=== PATIENT | female | born 1985 | race Caucasian/White ===

== ENCOUNTER → 2024-02-27 13:29 | Outpatient (BNVA) | payer MEDICARE, SELFPAY | PROVIDERS: PCP Physician Assistant; Visit Provider Physician Assistant Surgical ==

== ENCOUNTER 2024-03-11 07:58 | Outpatient (AMB) | payer MEDICARE, MEDICAID, SELFPAY ==
--- NOTE | 2024-03-11 13:13 | MHC.OFFVISWM ---
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 HPI Comments Details: Previous weight loss efforts: Lap band 2018, pre lap band: 325lbs, lowest: 290lbs Wakes up: 6am, Sleeps: 11pm Breakfast: skips Lunch 12-1pm (Tacos or salad) Dinner: 5pm (turkey, ham and chicken) Snacks: 7pm (chips or fruits) Exercise: none, walks horses Fluids: Coffee: 1 cup/day, tea: occasionally, soda: rarely, juice: rarely, ETOH: none PFSH Medical History (Updated 03/11/24 @ 13:17 by Gilmar Doherty MD) ADHD Anxiety Depression Morbid obesity Surgical History (Updated 03/11/24 @ 13:17 by Gilmar Doherty MD) History of laparoscopic adjustable gastric banding Hx of tubal ligation Family History (Updated 02/27/24 @ 14:04 by Shira Salinas CMA) Mother Skin cancer Father Liver cancer Heart attack Daughter Asthma ADHD Son No problems noted. Son No problems noted. Social History (Updated 02/27/24 @ 14:04 by Shira Salinas CMA) Alcohol intake: current Alcohol intake frequency: holidays/special occasions only Patient Tobacco Use Status: Never used Tobacco Telehealth Telehealth Telehealth Platform: Telephone Location of provider rendering services: practice address Location of patient: address on file Patient Identification confirmed using: Name, : Yes Telehealth method: voice only Patient verbally consented to treatment: Yes Patient verbally consented to billing insurance company: Yes Patient informed of any privacy concerns related to visit: Yes Minutes spent on Phone/Video with Pt.: 45 Assessment & Plan Assessment & Plan (1) Morbid obesity: Code(s): E66.01 - Morbid (severe) obesity due to excess calories Category: Medical Plan: 1.? Plan for lap band removal followed by sleeve gastrectomy a few months later. If diaphragmatic or ventral hernias are present at time of surgery, these will be repaired laparoscopically as well. Risks and complications include possible conversion to an open procedure, anastomotic leak, bleeding requiring transfusion, small bowel obstruction, , DVT and pulmonary embolism, cardiac, or pulmonary complications, as residential complications such as anastomotic ulcer, insufficient weight loss and vitamin deficiencies. I emphasized the importance of close follow-up, adherence to instructions and good communication. 2. Nutritional counseling. Start with 2 CELEBRATE REBUILD protein (buy at [facility]'s [employer] shop) shakes (TWO scoops EACH in 8oz low fat unsweetened almond milk each) at 7am-9am and 10am-12pm, 2 protein bars (CELEBRATE protein bars, buy at [facility] [employer] shop) at 1pm-3pm and 4pm-6pm, dinner at 7pm (8 forks of protein and 8 forks of salad/vegetables) AND one more protein bar after dinner at 9pm-11pm. So you do 2 protein shakes, 3 protein bars and one meal per day. Meal to include lean meat (beef, fish, pork, turkey, chicken), or brit[place] virgin islander yogurt, or egg whites, or beans with a salad with olive oil and fruits (berries, pears, apples, kiwi). Avoid salt, breads, potatoes, rice, pasta, desserts. 3. Each shake would be drunk slowly, like coffee in a period of 2 hours. 4. Cut each bar in 4 pieces and eat each piece in 30min ?to make each bar last 2 hours. 5. I emphasized the importance of measuring accurately the food portion and measure it when serving the food in plate 6. The meal portions include 8 full-size forks of meat and 8 full-size forks of salad. You always eat the meat portion but you can replace up to 4 forks for salad/vegetables with rice, potatoes or pasta, or a fruit ?if you like. The less you do it the better weight loss will be. 7. One full-size fork is what it can be scooped on the fork without falling aside and not what can be bit with the fork. Use regular forks like those you find in a typical restaurant. 8.? Please send me weight measurements as soon as possible and then once a week. Always include your diet and exercise plan. 9. Start walking outside daily, tracking calories with a goal of 300 calories per day, daily. Goal is to burn 2000 calories per week on exercise, which means either 300 calories daily, or 400 calories 5 days per week, or 500 calories 4 days per week, or 650 calories 3 days per week. 10. The best choice would be to purchase a stationary bike, elliptical or treadmill at home that can track calories. Let me know if you do so I can give you an exercise plan. 11.?It is important of avoiding and for at least 18 months postoperatively and has been discussed at the infosession. 12. Goal is to lose at least 1.5-2lbs per week 13. Goal to lose 10% of your weight before surgery, which is about 31lbs. Ultimate weight goal: 284lbs before surgery 14. Please follow the diet plan exactly without any change. If you don't like something about the plan or you feel hungry you need to communicate with me so I can help you revise the plan. You should not change the plan yourself. 15. To be scheduled for EGD due to history of GERD. The possibility of biopsies was discussed. Patient needs to avoid use of NSAIDs and aspirin for 1 week prior to EGD. Risks of perforation and bleeding was discussed with the patient. This will be an outpatient procedure with IV sedation.
[2024-03-11 13:21] VITALS: BMI 47.9
== END 2024-03-11 16:01 | disposition home or self-care (01) ==
LOC: HO.HBS 07:58
PROVIDERS: PCP Physician Assistant; Visit Provider Surgery
DX: E66.813 Obesity, class 3 (principal); Z68.42 Body mass index [BMI] 45.0-49.9, adult
CPT/HCPCS: 99443

== ENCOUNTER 2024-04-03 07:55 | Day surgery (SDC) | payer MEDICARE, MEDICAID, SELFPAY ==
--- NOTE | 2024-04-02 08:34 | HO.ANESPROP2 ---
Documented by User: Krystle Irby NP 04/02/24 08:34 HPI - Anesthesia Eval Consult details Narrative: 38yo F for Upper Endoscopy PMFSH Active Problems Active Problems: All Active Problems ADHD (Acute) Anxiety (Acute) Depression (Acute) Morbid obesity (Acute) Past Medical History Medical History ADHD Anxiety Depression Morbid obesity Family History Family History Mother Skin cancer Father Liver cancer Heart attack Daughter Asthma ADHD Son No problems noted. Son No problems noted. Surgical History Surgical History History of laparoscopic adjustable gastric banding Hx of tubal ligation Social History Social History Alcohol intake: current Alcohol intake frequency: holidays/special occasions only Patient Tobacco Use Status: Never used Tobacco Use of substances other than those prescribed or required for medical reasons: No Are you DNR?: No Advance Directives: No Advance Directives Information Provided: Yes Nutrition Risks: No Nutritional Risk Patient : No Meds Allergies Allergy/AdvReac Type Severity Reaction Status Date / Time acetaminophen [From Vicodin] Allergy Mild hives Verified 03/11/24 13:13 hydrocodone [From Vicodin] Allergy Mild hives Verified 02/27/24 15:27 Home Medications ?Medication ?Instructions ?Recorded ?Confirmed ?Last Taken ?Type dextroamphetamine-amphetamine 30 30 mg PO DAILY 02/27/24 04/03/24 Unknown History mg tablet (Adderall) duloxetine 20 mg capsule,delayed 20 mg PO DAILY 04/03/24 04/03/24 Unknown History release (Cymbalta) Assessment and Plan Assessment Anesthesia Assessment: Chart Reviewed Documented by User: Dona Walker MD 04/03/24 09:36 PMFSH Active Problems Active Problems: All Active Problems ADHD (Acute) Anxiety (Acute) Depression (Acute) Morbid obesity (Acute) BMI 47.8 Denies ANUPAMA Past Medical History Medical History ADHD Anxiety Depression Morbid obesity Family History Family History Mother Skin cancer Father Liver cancer Heart attack Daughter Asthma ADHD Son No problems noted. Son No problems noted. Family history of problems with anesthesia: No Surgical History Surgical History History of laparoscopic adjustable gastric banding Hx of tubal ligation History of Problems with Anesthesia: No Social History Social History Alcohol intake: current Alcohol intake frequency: holidays/special occasions only Patient Tobacco Use Status: Never used Tobacco Use of substances other than those prescribed or required for medical reasons: No Are you DNR?: No Advance Directives: No Advance Directives Information Provided: Yes Nutrition Risks: No Nutritional Risk Patient : No Meds Allergies Allergy/AdvReac Type Severity Reaction Status Date / Time acetaminophen [From Vicodin] Allergy Mild hives Verified 03/11/24 13:13 hydrocodone [From Vicodin] Allergy Mild hives Verified 02/27/24 15:27 Home Medications ?Medication ?Instructions ?Recorded ?Confirmed ?Last Taken ?Type dextroamphetamine-amphetamine 30 30 mg PO DAILY 02/27/24 04/03/24 Unknown History mg tablet (Adderall) duloxetine 20 mg capsule,delayed 20 mg PO DAILY 04/03/24 04/03/24 Unknown History release (Cymbalta) Exam Height,Weight and Vital Signs: Height 5 ft 8 in Weight 142.598 kg Vital Signs Temp Pulse Resp BP Pulse Ox O2 Del Method 04/03/24 09:01 97.8 F 74 16 124/61 98 Room Air Airway Mallampati Class: III TM Dist: >3cm Neck ROM: Full Loose/Missing/Broken Teeth: No Heart: RRR Lungs: CTAB Assessment and Plan Assessment Anesthesia Assessment: Anesthesia Plan Discussed and Chart Reviewed Final Anesthetic Review Family History of Problems with Anesthesia: No History of Problems with Anesthesia: No NPO: Yes ASA Class: III Final Preanesthetic Review: No Changes in Pt Med Stat, Meds/Allgs Chart Reviewed, Consent Obtained/Reviewed and Anes Risks/Benef Reviewed Patient Risk: Intermediate Procedure Risk: Low Assessment/Block/Sedation in SS: Assess/Block/Sedation-SS Anesthetic Plan Anesthetic Plan: TIVA Disposition: Standard PACU
[2024-04-03 08:59] VITALS: BMI 47.8
[2024-04-03 09:01] VITALS: BP 124/61; PULSE 74; RESP 16; TEMP 36.6; O2SAT 98
[2024-04-03] MEDS: Lactated Ringers 1,000 ML 80 ML IVCONT (09:16)
--- NOTE | 2024-04-03 09:27 | MHC.SHP ---
Pre-Procedural Eval Section A - 24 Hr Update-Section A only Date of Service: 04/03/24 The patient is an INPATIENT: No Section B - Complete if H&P > 30 days Chief Complaint: Bariatric surgery status Relevant Family History (Specify if Yes): No Relevant Social History: None Present Medications: None Medical History: No relevant PMH History of Previous Operations: Relevant previous surgery/procedure and date(s) (Lap band) Allergies: Allergies Allergy/AdvReac Type Severity Reaction Status Date / Time acetaminophen [From Vicodin] Allergy Mild hives Verified 03/11/24 13:13 hydrocodone [From Vicodin] Allergy Mild hives Verified 02/27/24 15:27 Review of Systems Sugical H&P ROS: Negative: Constitution, Cardiovascular, Respiratory, Neurological, Psychiatric, Hem-Onc, Allergic/Immunologic, Gastrointestinal, Genitourinary, Musculoskeletal, Integumentary, Endocrine and Eyes/Ears/Nose/Throat Exam Surgical H&P Exam: Significant Findings: Abdomen (port at RUQ) Plan Diagnosis/Plan: Unchanged (EGD to assess the stomach's anatomy and whether there is any slippage or band erosion. Risks of bleeding and perforation were discussed with the patient and she is in agreement with the plan.) I have reviewed the history and physical and performed a pertinent physical examination on my patient. No changes have occurred unless specified. Time Spent With Patient Time: Total time managing care of this patient today ____ minutes.
--- NOTE | 2024-04-03 09:31 | P.BOP_ITS ---
Brief Operative Note Date of Service: 04/03/24 Pre-op diagnosis: Lap band status Post-op diagnosis: same Procedure: PREOPERATIVE DIAGNOSIS: Morbid obesity s/p lap band POSTOPERATIVE DIAGNOSIS: ?Same as above. Normal endoscopy PROCEDURE: Dwgqxeum-oykhsw-mdkzedbygstl with biopsies Surgeon: ?Garrett Doherty M.D.. Ph.D. Wool Washer Feeder: None ? Anesthesia: IV sedation Estimated blood loss: ?Minimal FINDINGS AND PROCEDURE: ? OPERATIVE INDICATIONS: ?The patient is a 38 year old female known to me who underwent a laparoscopic gastric band by Dr. Soriano. The patient had poor weight loss so far and is interested in a revision. Based on this information I recommended an upper endoscopy to evaluate the stomach's anatomy and whether there is any band slippage or erosion. Risks and complications of the surgery were discussed with the patient in advance particularly the possibility of perforation or bleeding that may require surgical intervention. The patient understood the risks and was in agreement with the plan. ? PROCEDURE: After informed consent was obtained by the patient, the patient was ?transferred to the Operating Room and was placed in the supine position.? After successful induction of IV sedation, a mouth block was inserted and the patient was placed in the left lateral decubitus position. An upper endoscopy was performed next, the oropharynx and esophagus appeared within the normal limits. There was no hiatal hernia. The z-line was smooth.? The stomach was entered and it appeared to be of normal size. There was no band erosion, ?slippage, gastritis and no ulcer. The scope was advanced into the duodenum which appeared to be normal as well. Retroflexion was performed and again no band erosion was seen. At that point the duodenum and the stomach were decompressed and the scope was withdrawn from the patient's mouth.Biopsies were obtained from the antrum (x1), fundus (x1), GE junction (x2) and distal esophagus (x2). No significant bleeding was noted from any of the biopsy sites. The patient was awaken and was transferred in stable condition to the Recovery Room for further care. I was present and performed all steps of the procedure. There were no residents to assist with this case. Garrett Doherty M.D., Ph.D. Surgeon: Gilmar Doherty MD Anesthesia: MAC Was an Wool Washer Feeder used for this Procedure?: No Estimated blood loss (mL): 0 IV fluids (mL): 400 Urine output (mL): 0 (No albert to record output) Pathology: none sent (1) antrum x1, 2) fundus x1, 3) GE junction x2, 4) distal esophagus x2) Condition: stable Disposition: PACU
[2024-04-03 09:59] VITALS: BP 110/68; PULSE 76; RESP 14; TEMP 36.5; O2SAT 97
[2024-04-03 10:14] VITALS: BP 121/74; PULSE 86; RESP 18; TEMP 36.5; O2SAT 94
== END 2024-04-03 10:30 | disposition home or self-care (01) ==
PROVIDERS: PCP Family Medicine; Visit Provider Surgery
PROC: 0DJ08ZZ Inspection of Upper Intestinal Tract, Via Natural or Artificial Opening Endoscopic (ICD-10-PCS; CPT 43235; principal; 2024-04-03 09:30)
DX: E66.01 Morbid (severe) obesity due to excess calories (principal); Z68.42 Body mass index [BMI] 45.0-49.9, adult; Z98.84 Bariatric surgery status; K20.90 Esophagitis, unspecified without bleeding; F90.9 Attention-deficit hyperactivity disorder, unspecified type; F32.A Depression, unspecified; F41.9 Anxiety disorder, unspecified; Z79.899 Other long term (current) drug therapy; Z88.5 Allergy status to narcotic agent; Z98.51 Tubal ligation status
CPT/HCPCS: 43239; 88305; 88313; 88342; J1596; J2003; J2250; J2704

== ENCOUNTER → 2024-04-03 07:55 | Outpatient (BNV) | payer MEDICARE, MEDICAID, SELFPAY | PROVIDERS: PCP Family Medicine; Visit Provider Surgery | DX: E66.01 Morbid (severe) obesity due to excess calories (principal); E66.813 Obesity, class 3; Z68.41 Body mass index [BMI] 40.0-44.9, adult; Z98.84 Bariatric surgery status | CPT/HCPCS: 43239 ==

== ENCOUNTER 2024-05-20 09:54 | Outpatient (AMB) | payer MEDICARE, MEDICAID, SELFPAY ==
--- NOTE | 2024-05-20 09:36 | A.OFFVIS_ITS ---
Intake Visit Reasons: (OV) Pre Op Lap Band Removal 05/30/24 Allergies acetaminophen [From Vicodin] Allergy (Mild, Verified 05/20/24 09:36) hives hydrocodone [From Vicodin] Allergy (Mild, Verified 05/20/24 09:36) hives Medication List - Last Reconciled 05/20/24 by Gilmar Doherty MD dextroamphetamine-amphetamine 30 mg (Adderall) 30 mg PO DAILY duloxetine (Cymbalta) 20 mg PO DAILY ondansetron 4 mg PO Q12H pantoprazole 40 mg PO DAILY HPI HPI (OV) Pre Op Lap Band Removal 05/30/24: Details: Start time: 9.25am, End time: 9.50am ?I spent 20 minutes speaking with the patient on the phone plus an additional 5 minutes reviewing and updating records for a total of 25 minutes HPI Comments Details: Has lost 7.7lbs or 2.44% TBWL This is her preop to remove the gastric band and accessories PFSH Medical History ADHD Anxiety Depression Morbid obesity Surgical History (Updated 05/20/24 @ 09:41 by Gilmar Doherty MD) History of laparoscopic adjustable gastric banding Hx of tubal ligation Family History Mother Skin cancer Father Liver cancer Heart attack Daughter Asthma ADHD Son No problems noted. Son No problems noted. Social History Alcohol intake: current Alcohol intake frequency: holidays/special occasions only Patient Tobacco Use Status: Never used Tobacco Telehealth Telehealth Telehealth Platform: Telephone Location of provider rendering services: practice address Location of patient: address on file Patient Identification confirmed using: Name, : Yes Telehealth method: voice only Patient verbally consented to treatment: Yes Patient verbally consented to billing insurance company: Yes Patient informed of any privacy concerns related to visit: Yes Minutes spent on Phone/Video with Pt.: 25 Assessment & Plan Assessment & Plan (1) History of laparoscopic adjustable gastric banding: Code(s): Z98.84 - Bariatric surgery status Category: Surgical Plan: 1. Plan for lap band removal and accessories including upper GI endoscopy. All tests has been completed and reviewed and the patient is cleared for the surgery. Risks and complications were discussed in detail including possible conversion to an open procedure, leak, bleeding requiring transfusion, small bowel obstruction, , DVT and pulmonary embolism, cardiac, or pulmonary complications, as senior care complications such as weight gain. I emphasized the importance of close follow-up, adherence to instructions and good communication. So far she has proven to be an excellent communicator and very compliant with all our directions accomplishing a weight loss. 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 2. Preop prescriptions were provided and explained the purpose of each one. Need to be purchased preop. Start Pantoprazole now as you get it from the pharmacy, 1 pill per day. The Zofran is for after surgery as needed. 4. Needs to purchase 1oz medicine cups . 4. Needs to purchase Children's liquid Tylenol for postop pain control. 5. Avoid aspirin, motrin, Advil, Aleve, Meloxicam, Excedrin, Ibuprofen, Naproxyn. Tylenol is OK. 6. Will do basic preop blood work-up any day between Monday05/21/24 and Monday05/24/24 fasting for 12 hours and is scheduled to see the Anesthesiologist prior to the day of surgery. 7. Importance of adherence to postop folllow-up and recommendations was underscored and she understands that. 8. Continue to avoid food and bars and continue with 5 Celebrate REBUILD protein shakes (TWO scoops EACH in 8oz almond milk) at 7am-9am, 10am-12pm, 1pm-3pm, 4pm- 6pm and at 7pm-9pm 9. No soups, broths or V8 10. The patient's?medical?history has been reviewed and they are considered low risk for post op DVT and therefore DVT prophylaxis is not considered necessary. Travel after surgery was reviewed. The patient has not disclosed any travel plans during the first 30 days after surgery and they have been advised that within the first 30 days after surgery any bus, plane, train or car travel over 2 hours in duration is contraindicated due to the possibility of developing blood clots from immobility. Any travel, needs to include periods of ambulation of 10 minutes in duration every 2 hours.? Patient was instructed to discuss any plans for travel during this period with their bariatric surgeon.? 11. Take no medications the day of your surgery 12. Stop any control pills and don't use them for one month after surgery 13. Absolutely no smoking or vaping, or marijuana until the surgery and for at least the first 4 weeks. Only nicotine patches are allowed. 14. Send me weight measurements on Monday05/25/24 and then on 05/30/24, the day of surgery before you go to the hospital. 15. Avoid any steroids by mouth for any reason. Let me know if someone prescribes them to you Orders: Orders Comprehensive Met. Panel Today Z01.818 - Encounter for other preprocedural examination Complete Blood Count Auto Diff Today Z01.818 - Encounter for other preprocedural examination Hemoglobin A1c Today Z01.818 - Encounter for other preprocedural examination Type and Screen Today Z01.818 - Encounter for other preprocedural examination Partial Thromboplastin Time Today Z01.818 - Encounter for other preprocedural examination Prothrombin Time INR Today Z01.818 - Encounter for other preprocedural examination Medications: New pantoprazole 40 mg PO DAILY 30 tabs 0RF K21.9 - Gastro-esophageal reflux disease without esophagitis ondansetron Only take one every 12 hours as needed if you have nausea 4 mg PO Q12H 20 tabs 0RF nausea and vomiting R11.0 - Nausea
== END 2024-05-20 10:21 | disposition home or self-care (01) ==
LOC: HO.HBS 09:54
PROVIDERS: PCP Family Medicine; Visit Provider Surgery
DX: Z98.84 Bariatric surgery status (principal)
CPT/HCPCS: 98016

== ENCOUNTER 2024-05-20 09:54 | Outpatient (REF) | payer MEDICARE, MEDICAID, SELFPAY | END 2024-05-20 09:55 | disposition home or self-care (01) | LOC: HO.LAB 09:54 | PROVIDERS: PCP Family Medicine; Visit Provider Surgery | DX: Z01.818 Encounter for other preprocedural examination (principal); K21.9 Gastro-esophageal reflux disease without esophagitis; R11.0 Nausea; Z13.89 Encounter for screening for other disorder ==

== ENCOUNTER 2024-05-27 10:23 | Outpatient (REF) | payer MEDICARE, MEDICAID, SELFPAY ==
--- NOTE | 2024-05-27 11:00 | ECG_ITS ---
Test Reason : PRE OP Blood Pressure : */* mmHG Vent. Rate : 69 BPM Atrial Rate : 69 BPM P-R Int : 122 ms QRS Dur : 90 ms QT Int : 408 ms P-R-T Axes : 66 20 30 degrees QTcB Int : 437 ms Normal sinus rhythm Normal ECG No previous ECGs available Referred By: Gilmar Doherty Electronically Signed By: ANDRIY RICHARD
--- OUTSIDE RECORDS SUMMARY | 2024-05-27 15:06 | XMS_ITS | Encounter Summary ---
Author Organization [facility] Address [address] [place] [address] Care Team Providers Care General Cargo Clerk Name Role Phone Matteo Osullivan MD Primary Care Provider Ny Castellanos Primary Care Provider Piedad vailable Encounter Details Date Type Department Care Team Description 04/21/2017 [facility] Medical Records [address] [place] [address] Josafat Villaseñor MD [address] [place] [address] [address] [place] [address] Social History Tobacco Use Types Packs/Day Years Used Date Smoking Tobacco: Never Smokeless Tobacco: Never Alcohol Use Standard Drinks/Week Comments Yes 0 (1 standard drink = 0.6 oz pur e alcohol) social Sex Assigned at Date Recorded Not on file documented as of this encounter Plan of Treatment Not on file documented as of this encounter Visit Diagnoses Not on filedocumented in this encounter Care Teams General Cargo Clerk Relationship Specialty Start Date End Date Matteo Osullivan MD PCP - General 05/01/08 10/22/17 Ny Little PCP - General Family Practice 10/23/17 documented as of this encounter
--- OUTSIDE RECORDS SUMMARY | 2024-05-27 15:06 | XMS_ITS | Clinical Summary ---
Author Organization [facility] Address [phone] [address] [place] [address] Care Team Providers Care Dispatcher Ship Pilot Name Role Phone Unavailable Primary Care Provider Unavailabl e Encounters Date Type Department Care Team Description 04/17/2024 Transcribe Orders [facility] [address] [place] [id number] Mary Alice Gutierrez MD Encounter for screening for other metabolic disorders (Primary Dx); Leukocytosis, unspecified type; Vitamin D deficiency, unspecified; Encounter for screening for cardiovascular disorders from Last 3 Months Social History Tobacco Use Types Packs/Day Years Used Date Smoking Tobacco: Never Assessed Education Answer Date Recorded Are you interested in more education? Not on dre e 08/26/2022 Are you concerned about learning? Not on file 08/26/2022 No 08/26/2022 No 08/26/2022 Digital Access Answer Date Recorded No 09/26/2022 No 09/26/2022 No 09/26/2022 Reliable internet access at home? Not on file 09/26/2022 Device with a working camera? Not on file Sex and Gender Information Value Date Recorded Sex Assigned at Not on file Gender Identity Not on file Sexual Orientation Not on file Plan of Treatment Health Maintenance Due Date Last Done Comments Adult Td,Tdap Booster 1983 DEPRESSION SCREENING 1995 SMOKING Hx and SMOKELESS TOB ACCO SCREENING 08/03/1996 HEPATITIS B SCREENING 08/03/2001 HEPATITIS C SCREENING 08/03/2001 HIV ONE-TIME SCREENING (18-6 5 YEARS) 08/03/2001 HEPATITIS B VACCINES (1 of 3 - 19+ 3-dose series) 08/03/2002 PAP SMEAR 08/03/2004 MAMMOGRAM 2023 INFLUENZA VACCINE (#1) 2023 COVID-19 VACCINE (2023-2 5 season) 2023 HEPATITIS A VACCINES Aged Out No long er eligible based on patient's age to complete this topic HIB VACCINES Aged Out No longer eligi ble based on patient's age to complete this topic MENINGOCOCCAL VACCINES (ACWY) Aged Out No longer eligible based on patient's age to complete this topic PNEUMOCOCCAL VACCINES (0-49 years) Aged Out No longer eligible based on patient's age to complete this topic Medical Devices Not on file Additional Source Comments The information contained in this document represents components of the legal health record. It is not the complete legal health record.[facility]
--- OUTSIDE RECORDS SUMMARY | 2024-05-27 15:07 | XMS_ITS ---
Author Organization [facility] Address [address] [place] [address] Care Team Providers Care Extension Agent Name Role Phone Mary Alice Gutierrez Primary Care Provider Ny Little Unavailable [phone] REASON FOR VISIT New Refill Request Medications Medication SIG (Take, Route, Fr equency, Duration) Notes Start Date End Date Status Adderall 30 MG tabs orally 1qam and 1/2 qpm for 60 days For ADHD 05/24/2024 Active Encounters Encounter Location Date Provider Diagnosis [facility] [address] [place] [address] 05/24/2024 Ny Little ADHD, unspecified type F90.9 Assessments Encounter Date Diagnosis (ICD Code) Assessment Notes Treatment Notes Treatment Clinical Notes Section Notes 05/24/2024 ADHD, unspecified type (ICD-10 - F90.9) Plan Of Treatment Medication Medication Name Sig Start Date Stop Date Notes Adderall 30 MG tabs orally 1qam and 1/2 qpm for 60 days 05/24/2024 For ADHD Next Appt Details Provider Name:Mary Alice Gutierrez, 06/20/2024 03:30:00 PM, [address] [place], [address], Provider Name:Mary Alice Gutierrez, 03/24/2025 02:30:00 PM, [address] [place], [address], Progress Notes * MINEJulyDOB: 4 (38 yo F)Acc No.[id number]:05/24/2024 Patient:?MINE, JULY :1985???Age:38 Y???Sex:Female Address:[address] [place] [address], [address] * Refills? Refill Adderall Tablet, 30 MG, orally, 90 Tablet, tabs, 1qam and 1/2 qpm, 60 days, Refills=0 * true * Date:? Generated for Gila terry/Gabriel/eTransmitting on:?05/27/2024 03:06 PM EST
--- OUTSIDE RECORDS SUMMARY | 2024-05-27 15:07 | XMS_ITS ---
Author Organization [facility] Address [address] [place] [address] Care Team Providers Care Chemical Maker Name Role Phone Mary Alice Gutierrez Primary Care Provider Ny Little Unavailable [phone] REASON FOR VISIT Mir-March Summary Encounters Encounter Location Date Provider Diagnosis [facility] [address] [place] [address] 05/23/2024 Mary Alice Gutierrez Plan Of Treatment Next Appt Details Provider Name:Mary Alice Gutierrez, 06/20/2024 03:30:00 PM, [address] [place], [address], Provider Name:Mary Alice Gutierrez, 03/24/2025 02:30:00 PM, [address] [place], [address], Progress Notes * JulyDOB: [birth year] (38 yo F)Acc No.[id number]:05/23/2024 Patient:?July :1985???Age:38 Y???Sex:Female [address] [place], [address] * true * Date:? Generated for Printi ng/Faxing/eTransmitting on:?05/27/2024 03:07 PM EST
--- OUTSIDE RECORDS SUMMARY | 2024-05-27 15:07 | XMS_ITS ---
Author Organization [facility] Address [address] [place] [address] Care Team Providers Care Irrigation Worker Name Role Phone Mary Alice Gutierrez Primary Care Provider [phone] Ny Little Unavailable [phone] REASON FOR VISIT Mirah- Follow up Resources Encounters Encounter Location Date Provider Diagnosis [facility] [address] [place] [address] 05/15/2024 Mary Alice Gutierrez Generalized anxiety disorder F41.1 and Depression F32.9 Assessments Encounter Date Diagnosis (ICD Code) Assessment Notes Treatment Notes Treatment Clinical Notes Section Notes 05/15/2024 Generalized anxiety disorder (ICD-10 - F41.1) -Spoke with Raquel regarding [facility] resource, she states she did receive a call but is not sure what they specifically need; possibly medical records. I let Raquel know we will reach out to them to confirm what specifically is required and if is something we can help facilitate and we would follow up with her next week. Raquel declined any other needs at this time and stated things were going well 05/15/2024 Depression (ICD-10 - F32.9) Plan Of Treatment Treatment Notes Assessment Notes Generalized anxiety disorder -Spoke with Raquel regarding [facility] resource, she states she did receive a call but is not sure what they specifically need; possibly medical records. I let Raquel know we will reach out to them to confirm what specifically is required and if is something we can help facilitate and we would follow up with her next week. Raquel declined any other needs at this time and stated things were going well Next Appt Details Provider Name:Mary Alice Gutierrez, 06/20/2024 03:30:00 PM, [address] , [place], [address], Provider Name:Mary Alice Gutierrez, 03/24/2025 02:30:00 PM, [address] [place], [address], Progress Notes * MINEJulyDOB: [birth year] (38 yo F)Acc No.[id number]:05/15/2024 Patient:?MINEJuly :1985???Age:38 Y???Sex:Female Address:[address] [place] [address], [address] Subjective: * Chief Complaints: * ???Mirah- Follow up Resource s * HPI: ???Interim History:?Consultations:?Called pt to follow up on resources for [facility].? * Medical History:? * Surgical History:? * Hospitalization/Major Diagno stic Procedure:? * Medications:? Objective: * Vitals:? * Physical Examination:? Assessment: * Assessment: 1.?Generalized anxiety disor tera - F41.1 (Primary)???2.?Depression - F32.9??? Plan: * Treatment: * Procedure Codes:? * true * Date:? Generated for Gila terry/Gabriel/eTransmitting on:?05/27/2024 03:07 PM EST History and Physical Notes * HPI (History of Present Illness) Category Sub-Category Detail Notes Category Not es Interim History Consultations: Called pt to jess low up on resources for [facility]
== END 2024-05-27 10:24 | disposition home or self-care (01) ==
LOC: HO.LAB 10:23
PROVIDERS: Absent Provider Physician Assistant Surgical; PCP Family Medicine; Visit Provider Surgery
DX: Z01.818 Encounter for other preprocedural examination (principal)
CPT/HCPCS: 93005

== ENCOUNTER → 2024-05-27 11:00 | Outpatient (BNV) | payer MEDICARE, MEDICAID, SELFPAY | PROVIDERS: Absent Provider Physician Assistant Surgical; PCP Family Medicine; Visit Provider Internal Medicine | DX: T85.598A Other mechanical complication of other gastrointestinal prosthetic devices, implants and grafts, initial encounter (principal) | CPT/HCPCS: 93010 ==

== ENCOUNTER 2024-05-30 05:40 | Day surgery (SDC) | payer MEDICARE, MEDICAID, SELFPAY ==
[2024-05-20 12:58] LABS: MANUAL DIFF FLAG NO
[2024-05-20 13:43] LABS: Basophils Absolute Auto 0.1 X10*3/uL (0.0-0.2); Basophils Percent Auto 0.5 % (0-2); Eosinophils Absolute Auto 0.2 X10*3/uL (0.0-0.4); Eosinophils Percent Auto 1.5 % (0-4); Hematocrit 42.9 % (37.0-47.0); Hemoglobin 13.1 g/dl (12.0-16.0); Imm Gran Abs Auto 0.07 X10*3/uL (0.00-0.03); Imm Gran Pct Auto 0.4 % (0.0-0.4); Lymphocytes Absolute Auto 3.6 X10*3/uL (1.2-4.9); Lymphocytes Percent Auto 21.7 % (20-40); Mean Corpuscular HGB Conc 30.5 g/dl (31.0-35.0); Mean Corpuscular Hemoglobin 24.3 pg (27.0-33.0); Mean Corpuscular Volume 79.7 fL (80.0-98.0); Mean Platelet Volume 12.8 fL (9.4-12.3); Monocytes Percent Auto 5.8 % (2-11); Neutrophils Absolute Auto 11.5 x10*3/uL (2.0-8.3); Neutrophils Percent Auto 70.1 % (45-73); Platelet Count 219 X10*3/uL (160-400); Red Blood Count 5.38 X10*6/uL (4.20-5.50); Red Cell Distribution Width 15.1 % (11.0-16.0); White Blood Count 16.4 X10*3/uL (4.8-10.8)
[2024-05-20 13:49] LABS: Prothrombin Time 11.3 SEC (10.9-12.4)
[2024-05-20 13:51] LABS: Estimated Average Glucose 117 mg/dL; Hemoglobin A1c % 5.7 % (<6.0); Partial Thromboplastin Time 34.1 SEC (26.0-36.8); Total Hemoglobin (HGBA1C) 3404.5665 umol/L
[2024-05-20 14:18] LABS: Alanine Aminotransferase 28 U/L (0-31); Albumin Level 4.3 g/dL (3.5-5.0); Alkaline Phosphatase 99 U/L (39-117); Anion Gap 16 (12-20); Aspartate Amino Transferase 32 U/L (5-31); Bilirubin Total 0.2 mg/dL (0.0-1.0); Blood Urea Nitrogen 10 mg/dL (9-16); Calcium 9.4 mg/dL (8.4-10.2); Carbon Dioxide 27 mmol/L (22-29); Chloride 103 mmol/L (96-108); Estimated Glomerular Filt Rate > 60; Glucose Random 87 mg/dL (60-115); Potassium 4.6 mmol/L (3.3-5.1); Sodium 141 mmol/L (135-145); Total Protein 7.9 g/dL (6.5-8.0)
[2024-05-28 09:20] VITALS: BMI 47.9
--- NOTE | 2024-05-28 14:02 | P.CONAN_ITS ---
Documented by User: Krystle Irby NP 05/28/24 14:03 HPI - Anesthesia Eval Consult details Narrative: 38yo F for Lap Band Removal Laparosopic BMI 48 PMFSH Active Problems Active Problems: All Active Problems Pre-op evaluation (Acute) History of laparoscopic adjustable gastric banding (Acute) ADHD (Acute) Anxiety (Acute) Depression (Acute) Morbid obesity (Acute) Past Medical History Medical History ADHD Anxiety Depression Morbid obesity Family History Family History Mother Skin cancer Father Liver cancer Heart attack Daughter Asthma ADHD Son No problems noted. Son No problems noted. Family history of problems with anesthesia: No Surgical History Surgical History History of laparoscopic adjustable gastric banding Hx of tubal ligation History of Problems with Anesthesia: No Social History Social History Are you a primary primary care physician to a significant other at home: No Do you presently have visiting nurse or other home services: No Alcohol intake: current Alcohol intake frequency: holidays/special occasions only Patient Tobacco Use Status: Never used Tobacco Use of substances other than those prescribed or required for medical reasons: No Have you been hit, kicked, punched, or otherwise hurt by someone within the past year? If so, by whom?: No Are you DNR?: No Advance Directives: No Advance Directives Information Provided: Yes Recently lost weight without trying: No Nutrition Risks: No Nutritional Risk Patient : No FDLMP: Meds Allergies Allergy/AdvReac Type Severity Reaction Status Date / Time acetaminophen [From Vicodin] Allergy Mild hives Verified 05/20/24 09:36 hydrocodone [From Vicodin] Allergy Mild hives Verified 05/20/24 09:36 Home Medications ?Medication ?Instructions ?Recorded ?Confirmed ?Last Taken ?Type dextroamphetamine-amphetamine 30 30 mg PO DAILY 02/27/24 05/30/24 05/30/24 History mg tablet (Adderall) duloxetine 20 mg capsule,delayed 20 mg PO DAILY 04/03/24 05/30/24 Unknown History release (Cymbalta) Exam Height,Weight and Vital Signs: Height 5 ft 8 in Weight 142.882 kg Pertinent Lab Results Pertinent Lab Results: Laboratory Tests 05/20/24 05/27/24 12:56 10:45 WBC 16.4 H RBC 5.38 Hgb 13.1 Hct 42.9 MCV 79.7 L MCH 24.3 L MCHC 30.5 L RDW 15.1 Plt Count 219 MPV 12.8 H Immature Gran % (Auto) 0.4 Neut % (Auto) 70.1 Lymph % (Auto) 21.7 [place] % (Auto) 5.8 Eos % (Auto) 1.5 Baso % (Auto) 0.5 Lymph # (Auto) 3.6 [place] # (Auto) 1.0 Eos # (Auto) 0.2 Baso # (Auto) 0.1 Abs Immat Gran (auto) 0.07 H Absolute Neuts (auto) 11.5 H Absolute Nucleated RBC 0.000 Nucleated RBC % (auto) 0.0 PT 11.3 INR 1.0 APTT 34.1 Sodium 141 Potassium 4.6 Chloride 103 Carbon Dioxide 27 Anion Gap 16 BUN 10 Creatinine 0.67 Estim Creat Clear Calc TNP Estimated GFR > 60 Random Glucose 87 Estimat Average Glucose 117 Hemoglobin A1c % 5.7 Calcium 9.4 Total Bilirubin 0.2 AST 32 H ALT 28 Alkaline Phosphatase 99 Total Protein 7.9 Albumin 4.3 Blood Type O Positive Antibody Screen NEGATIVE Narrative Narrative: EKG 05/2024 Vent. Rate : 69 BPM Atrial Rate : 69 BPM P-R Int : 122 ms QRS Dur : 90 ms QT Int : 408 ms P-R-T Axes : 66 20 30 degrees QTcB Int : 437 ms Normal sinus rhythm Normal ECG No previous ECGs available Assessment and Plan Assessment Anesthesia Assessment: Chart Reviewed Final Anesthetic Review Family History of Problems with Anesthesia: No History of Problems with Anesthesia: No Documented by User: Dona Walker MD 05/30/24 07:28 PMFSH Active Problems Active Problems: All Active Problems Pre-op evaluation (Acute) History of laparoscopic adjustable gastric banding (Acute) ADHD (Acute) Anxiety (Acute) Depression (Acute) Morbid obesity (Acute) BMI 48 Denies ANUPAMA Past Medical History Medical History ADHD Anxiety Depression Morbid obesity Family History Family History Mother Skin cancer Father Liver cancer Heart attack Daughter Asthma ADHD Son No problems noted. Son No problems noted. Family history of problems with anesthesia: No Surgical History Surgical History History of laparoscopic adjustable gastric banding Hx of tubal ligation History of Problems with Anesthesia: No Social History Social History Are you a primary primary care physician to a significant other at home: No Do you presently have visiting nurse or other home services: No Alcohol intake: current Alcohol intake frequency: holidays/special occasions only Patient Tobacco Use Status: Never used Tobacco Use of substances other than those prescribed or required for medical reasons: No Have you been hit, kicked, punched, or otherwise hurt by someone within the past year? If so, by whom?: No Are you DNR?: No Advance Directives: No Advance Directives Information Provided: Yes Recently lost weight without trying: No Nutrition Risks: No Nutritional Risk Patient : No FDLMP: Meds Allergies Allergy/AdvReac Type Severity Reaction Status Date / Time acetaminophen [From Vicodin] Allergy Mild hives Verified 05/20/24 09:36 hydrocodone [From Vicodin] Allergy Mild hives Verified 05/20/24 09:36 Home Medications ?Medication ?Instructions ?Recorded ?Confirmed ?Last Taken ?Type dextroamphetamine-amphetamine 30 30 mg PO DAILY 02/27/24 05/30/24 05/30/24 History mg tablet (Adderall) duloxetine 20 mg capsule,delayed 20 mg PO DAILY 04/03/24 05/30/24 Unknown H istory release (Cymbalta) Exam Height,Weight and Vital Signs: Height 5 ft 8 in Weight 142.882 kg Vital Signs Temp Pulse Resp BP Pulse Ox O2 Del Method 05/30/24 06:32 98.2 F 73 14 137/78 96 Room Air Airway Mallampati Class: III TM Dist: >3cm Neck ROM: Full Loose/Missing/Broken Teeth: No (Denies broken, loose, missing teeth) Heart: RRR Lungs: CTAB Assessment and Plan Assessment Anesthesia Assessment: Anesthesia Plan Discussed and Chart Reviewed Final Anesthetic Review Family History of Problems with Anesthesia: No History of Problems with Anesthesia: No NPO: Yes ASA Class: III Final Preanesthetic Review: No Changes in Pt Med Stat, Meds/Allgs Chart Reviewed, Consent Obtained/Reviewed and Anes Risks/Benef Reviewed Patient Risk: Intermediate Procedure Risk: Intermediate Assessment/Block/Sedation in SS: Assess/Block/Sedation-SS Anesthetic Plan Anesthetic Plan: GA Disposition: Standard PACU
--- OUTSIDE RECORDS SUMMARY | 2024-05-30 05:43 | XMS_ITS ---
Author Organization [facility] Address [address] [place] [address] Care Team Providers Care Strap Buckler Machine Name Role Phone Mary Alice Gutierrez Primary Care Provider Ny Little Unavailable [phone] REASON FOR VISIT Mir-March Summary Encounters Encounter Location Date Provider Diagnosis [facility] [address] [place] [address] 05/23/2024 Mary Alice Gutierrez Plan Of Treatment Next Appt Details Provider Name:Mary Alice Gutierrez, 06/20/2024 03:30:00 PM, [address] [place], [address], Provider Name:Mary Alice Gutierrez, 03/24/2025 02:30:00 PM, [address] [place], [address], Progress Notes * JulyDOB: [birth year] (38 yo F)Acc No.[id number]:05/23/2024 Patient:?July :1985???Age:38 Y???Sex:Female [address] [place], [address] * true * Date:? Generated for Printi ng/Faxing/eTransmitting on:?05/30/2024 05:42 AM EST
--- OUTSIDE RECORDS SUMMARY | 2024-05-30 05:43 | XMS_ITS ---
Author Organization [facility] Address [address] [place] [address] Care Team Providers Care Felt Machine Mechanic Name Role Phone Mary Alice Gutierrez Primary Care Provider [phone] Ny Little Unavailable [phone] REASON FOR VISIT Mirah- Follow up Resources Encounters Encounter Location Date Provider Diagnosis [facility] [address] [place] [address] 05/15/2024 Mary Alice Gutierrez Generalized anxiety disorder [...] 03:30:00 PM, [address] , [place], [address], Provider Name:Mary Alice Gutierrez, 03/24/2025 02:30:00 PM, [address] [place], [address], Progress Notes * MINEJulyDOB: [birth year] (38 yo F)Acc No.[id number]:05/15/2024 Patient:?MINEJuly :1985???Age:38 Y???Sex:Female Address:[address] [place] [address], [address] Subjective: * Chief Complaints: * ???Mirah- Follow up Resource s * HPI: ???Interim History:?Consultations:?Called pt to follow up on resources for [facility].? * Medical History:? * Surgical History:? * Hospitalization/Major Diagno stic Procedure:? * Medications:? Objective: * Vitals:? * Physical Examination:? Assessment: * Assessment: 1.?Generalized anxiety disor tera - F41.1 (Primary)???2.?Depression - F32.9??? Plan: * Treatment: * Procedure Codes:? * true * Date:? Generated for Gila terry/Gabriel/eTransmitting on:?05/30/2024 05:42 AM EST History and Physical Notes * HPI (History of Present Illness) Category Sub-Category Detail Notes Category Not es Interim History Consultations: Called pt to jess low up on resources for [facility]
[2024-05-30 06:32] VITALS: BP 137/78; PULSE 73; RESP 14; TEMP 36.8; O2SAT 96; BMI 31.5
[2024-05-30] MEDS: Lactated Ringers 1,000 ML 100 ML IVCONT (06:48)
[2024-05-30] MEDS: Aprepitant 32 MG/4.4 ML VIAL IVPUSH (06:52)
--- NOTE | 2024-05-30 07:22 | P.HPSUR_ITS ---
Pre-Procedural Eval Section A - 24 Hr Update-Section A only Date of Service: 05/30/24 The patient is an INPATIENT: No The patient has been examined within 24 hours of the surgical procedure. The History & Physical has been completed within 30 days and I have reviewed it.: Yes Section B - Complete if H&P > 30 days Chief Complaint: Other complications of gastric band procedure Relevant Family History (Specify if Yes): No Relevant Social History: None Present Medications: None Medical History: No relevant PMH History of Previous Operations: Relevant previous surgery/procedure and date(s) (Lap gastric band) Allergies: Allergies Allergy/AdvReac Type Severity Reaction Status Date / Time acetaminophen [From Vicodin] Allergy Mild hives Verified 05/20/24 09:36 hydrocodone [From Vicodin] Allergy Mild hives Verified 05/20/24 09:36 Review of Systems Sugical H&P ROS: Negative: Constitution, Cardiovascular, Respiratory, Neurological, Psychiatric, Hem-Onc, Allergic/Immunologic, Gastrointestinal, Genitourinary, Musculoskeletal, Integumentary, Endocrine and Eyes/Ears/Nose/Throat Exam Surgical H&P Exam: Normal: HEENT, Normal: Heart, Normal: Lungs, Normal: Extrem ities, Normal: Abdomen, Normal: Skin and Normal: Neurological Plan Diagnosis/Plan: Unchanged I have reviewed the history and physical and performed a pertinent physical examination on my patient. No changes have occurred unless specified. Time Spent With Patient Time: Total time managing care of this patient today ____ minutes.
--- NOTE | 2024-05-30 07:45 | PM.OP ---
Brief Operative Note Date of Service: 05/30/24 Pre-op diagnosis: Gastric band malfunction Post-op diagnosis: same Procedure: PROCEDURE: Esophago-gastroscopy, laparoscopic lysis of adhesions, laparoscopic band removal and accessories INDICATIONS: This is a 38 year-old female with a BMI of 47.9 kg/m2 and associated comorbid conditions as described previously. The patient has been experiencing frequent episodes of vomiting and food intolerance. As a result, the patient was electively scheduled for laparoscopic, possibly open gastric band removal. The risks and complications of the procedure were discussed with the patient in advance, particularly the possibility of ; pulmonary embolism; infection, gastric leak, bleeding; GERD; cardiac, pulmonary, or renal complications. The patient understood all the risks, and was in agreement to proceed with surgery. DESCRIPTION OF PROCEDURE: After informed consent was obtained from the patient, the patient was given preoperative antibiotics, and was transferred to the operating room. After successful induction of general anesthesia, pneumatic compressive devices were placed on both lower extremities. An upper endoscopy was performed next. The oropharynx and esophagus appeared to be within normal limits. There was no diaphragmatic hernia present. The stomach was entered. Then after all fluid and air were suctioned and the stomach was fully decompressed, the scope was withdrawn and secured in the mid esophagus. The patient was then prepped and draped in the usual sterile manner, and abdominal access was established at the right upper quadrant with the Kenneth technique. A 12 mm blunt port was inserted, and the abdomen was insufflated with CO2 to a pressure of 15 mmHg. Under direct visualization, additional ports were placed, specifically two 5 mm Versi-step ports to the left upper quadrant, and a 5 mm Versi-Step port to the right upper quadrant. 1% lidocained plan was used to infiltrate all port sites as well as all fascia defects. Following that, the patient was placed in a steep reverse Trendelenburg position. An additional 5 mm port was placed to the right flank for the Mediflex retractor that was used to retract the left lobe of the liver. There were adhesions in the abdomen from previous lap band involving the stomach and the undersurface of the left lobe of the liver. Those were lysed completely with the ultrasonic device. The patient has a lap gastric band. It was identified and using the Thunderbeat, the capsule was opened and the band was freed from surrounding tissues. Once it was adequately mobile, it was cut and was removed from the Kenneth port along with the intra-abdominal portion of the tubing system. ?An upper endoscopy was performed. There was no narrowing at the GE junction. The scope was easily advanced all the way to the pylorus which was clearly visualized. There was no narrowing anywhere. There was no evidence of ischemia, bleeding or dehiscence. At that point the gastroscope was withdrawn from the patient?s mouth while we were decompressing the bowel and the stomach from any remaining air. There was no bleeding from the liver, spleen, or short gastric vessels. The Mediflex retractor was removed, and the undersurface of the liver was inspected and there was no bleeding. The patient was placed in supine position. The band's port was removed from the same incision I made for the Kenneth port. Using cautery the subcutaneous tissues were divided until the port was identified. This particular port is not secured with sutures but with hooks. The remaining tubing system was delivered first and then slowly the four hooks were detached from the fascia and the port with tubing system were retrieved intact. I closed the fascial defect of the 12 mm port site with a figure of eight #1 Polysorb suture. Then 30cc Ropivacaine plain with 10 mg of Dexamethasone were used to infiltrate the fascial closure as well as all skin incisions. At this point, the abdomen was deflated, all ports were removed under direct vision, and no bleeding was noted from any of the port sites. The skin incisions were irrigated with saline and were closed with 4-0 absorbable monofilament sutures. Steri-Strips and OpSites were used to cover all incisions. The patient was extubated and was transferred in stable condition to the recovery room for further care. I was present and performed all mccoy parts of the procedure. Ms. Navarro was the registered dental assistant rda. There were no residents to assist with this case. Garrett Doherty MD, PhD, FACS Surgeon: Gilmar Doherty MD Anesthesia: GETA, local and other (TAP block) Was an Forest Management Teacher used for this Procedure?: No Forest Management Teacher: Joanna Navarro Estimated blood loss (mL): 10 IV fluids (mL): 2,000 Urine output (mL): 0 (No Gutierrez to record output) Pathology: other (Gastric band, tubing system and port) Condition: stable Disposition: PACU
[2024-05-30 09:19] VITALS: BP 114/56; PULSE 74; RESP 15; TEMP 36.3; O2SAT 95
[2024-05-30 09:24] VITALS: BP 114/57; PULSE 75; RESP 16; O2SAT 95
[2024-05-30 09:29] VITALS: BP 118/58; PULSE 75; RESP 15; O2SAT 95
[2024-05-30 09:34] VITALS: BP 135/80; PULSE 73; RESP 16; O2SAT 95
[2024-05-30 09:49] VITALS: BP 138/72; PULSE 80; RESP 16; TEMP 36.3; O2SAT 95
== END 2024-05-30 10:28 | disposition home or self-care (01) ==
PROVIDERS: PCP Family Medicine; Visit Provider Surgery
PROC: (CPT 43774; principal; 2024-05-30 07:30)
DX: K95.09 Other complications of gastric band procedure (principal); K91.2 Postsurgical malabsorption, not elsewhere classified; Y83.8 Other surgical procedures as the cause of abnormal reaction of the patient, or of later complication, without mention of misadventure at the time of the procedure; Y73.2 Prosthetic and other implants, materials and accessory gastroenterology and urology devices associated with adverse incidents; R11.10 Vomiting, unspecified; E66.01 Morbid (severe) obesity due to excess calories; Z68.42 Body mass index [BMI] 45.0-49.9, adult; F32.A Depression, unspecified; F41.9 Anxiety disorder, unspecified; F90.9 Attention-deficit hyperactivity disorder, unspecified type; Z88.5 Allergy status to narcotic agent; Z79.899 Other long term (current) drug therapy
CPT/HCPCS: 43774; 49329; 36415; 80053; 83036; 85025; 85610; 85730; 86850; 86900; 86901; 88300; C9145; J0131; J0690; J1100; J1171; J2003; J2250; J2371; J2405; J2704; J2795; J3010

== ENCOUNTER 2024-06-05 13:24 | Outpatient (AMB) | payer MEDICARE, MEDICAID, SELFPAY ==
--- NOTE | 2024-06-05 13:44 | A.OFFVIS_ITS ---
VS Expanded 06/05/24 13:50 BP 147/65 H Blood Pressure Location Rt brachial Blood Pressure Position Sitting Pulse 97 Pulse Source Pulse Oximeter Temp 98.4 F Temperature Source Temporal Artery Scan Pulse Oximetry 98 Oxygen Delivery Method Room Air Height 5 ft 8 in Weight 302 lb 6.4 oz BMI 46.0 Body Fat % 53.1 Body Fat Mass 160.4 Fat Free Mass 141.8 Visceral Fat Rating 17.0 Body Water % 33.6 Body Water Mass 101.4 Muscle Mass/Score 134.8 Basal Metabolic Rate/Score 2,079 Intake Visit Reasons: (OV) s/p Lap Band Removal 05/30/24 Allergies acetaminophen [From Vicodin] Allergy (Mild, Verified 05/20/24 09:36) hives hydrocodone [From Vicodin] Allergy (Mild, Verified 05/20/24 09:36) hives Medication List - Last Reconciled 06/05/24 by DAY Carvalho dextroamphetamine-amphetamine 30 mg (Adderall) 30 mg PO DAILY duloxetine (Cymbalta) 20 mg PO DAILY pantoprazole 40 mg PO DAILY HPI Comments Details: Pt is 6 days s/p lap band removal 05/30/2024. Pt denies nausea, having some pain with movement/coughing/sneezing. Having bowel function. No fevers at home. Following meal plan per Dr Cabrera, protein shakes plus meal of protein and veg. Denies reflux currently. She is unsure whether she would like to undergo further bariatric surgery. [facility] Medical History ADHD Anxiety Depression Morbid obesity Surgical History History of laparoscopic adjustable gastric banding Hx of tubal ligation Family History Mother Skin cancer Father Liver cancer Heart attack Daughter Asthma ADHD Son No problems noted. Son No problems noted. Social History Are you a primary foster care case manager to a significant other at home: No Do you presently have visiting nurse or other home services: No Alcohol intake: current Alcohol intake frequency: holidays/special occasions only Patient Tobacco Use Status: Never used Tobacco Physical Exam Vital Signs: Last Vital Signs Temp 98.4 F 06/05/24 13:50 Pulse 97 06/05/24 13:50 BP 147/65 H 06/05/24 13:50 Pulse Ox 98 06/05/24 13:50 Oxygen Delivery Method Room Air 06/05/24 13:50 BMI result Body Mass Index 46.0 Const General: cooperative, comfortable and no acute distress Orientation/consciousness: patient oriented x3 GI Other: soft, appropriately tender, nondistended, steri-strips c/d/i Neuro General: patient oriented x3 Assessment & Plan Assessment & Plan (1) Morbid obesity: Code(s): E66.01 - Morbid (severe) obesity due to excess calories Category: Medical (2) History of removal of laparoscopic gastric banding device: Code(s): Z98.84 - Bariatric surgery status Category: Medical Plan May shower but no bath or submersion of abdomen in water. May start exercise tomorrow.? No abdominal exercises x 6 weeks. Abdominal binder for the next 2 weeks with activity or exercise. Continue meal plan per Dr Cabrera, text weekly. Continue PPI. RTC 5 weeks.
[2024-06-05 13:50] VITALS: BP 147/65; PULSE 97; TEMP 36.9; O2SAT 98; BMI 46.0
--- OUTSIDE RECORDS SUMMARY | 2024-06-05 14:47 | XMS_ITS | Clinical Summary ---
Author Organization [facility] Address [phone] [address] [place] [address] Care Team Providers Care Transfer And Pumphouse Operator Name Role Phone Unavailable Primary Care Provider Unavailabl e Encounters Date Type Department Care Team Description 04/17/2024 Transcribe Orders [facility] [address] [place] [id number] Mary Alice Gutierrez MD Encounter for screening [...] 2023 INFLUENZA VACCINE (#1) 2023 COVID-19 VACCINE ( - 2023-2 5 season) 2023 HEPATITIS A VACCINES Aged [...] It is not the complete legal health record.[facility]
== END 2024-06-05 14:37 | disposition home or self-care (01) ==
PROVIDERS: PCP Family Medicine; Visit Provider Physician Assistant Surgical
DX: E66.01 Morbid (severe) obesity due to excess calories (principal); Z68.42 Body mass index [BMI] 45.0-49.9, adult; Z98.84 Bariatric surgery status
CPT/HCPCS: 99024

== ENCOUNTER → 2024-06-05 13:24 | Outpatient (BNVA) | payer MEDICARE, MEDICAID, SELFPAY | PROVIDERS: PCP Family Medicine; Visit Provider Physician Assistant Surgical | DX: E66.01 Morbid (severe) obesity due to excess calories (principal); Z98.84 Bariatric surgery status; Z68.42 Body mass index [BMI] 45.0-49.9, adult | CPT/HCPCS: 99212 ==

== ENCOUNTER 2024-07-23 12:32 | Outpatient (AMB) | payer MEDICARE, MEDICAID, SELFPAY ==
--- NOTE | 2024-07-23 12:05 | MHC.OFFVISWM ---
VS Expanded 07/23/24 12:14 Height 5 ft 8 in Weight 296 lb BMI 45.0 Intake Visit Reasons: (TV) s/p Lap Band Removal 05/30/24 Allergies acetaminophen [From Vicodin] Allergy (Mild, Verified 05/20/24 09:36) hives hydrocodone [From Vicodin] Allergy (Mild, Verified 05/20/24 09:36) hives Medication List - Last Reconciled 07/23/24 by DAY Carvalho dextroamphetamine-amphetamine 30 mg (Adderall) 30 mg PO DAILY duloxetine (Cymbalta) 20 mg PO DAILY HPI Comments Details: Pt is 2 months s/p lap band removal 05/30/2024. Pt reports occasional nausea, no vomiting, denies pain. Off pantoprazole, no heartburn. Following meal plan per Dr Cabrera, protein shakes plus meal of protein and veg. She is still unsure whether she would like to undergo further bariatric surgery. Exercise- starting to go to the gym, taking it slow. [facility], [facility] Medical History ADHD Anxiety Depression Morbid obesity Surgical History History of laparoscopic adjustable gastric banding Hx of tubal ligation Family History Mother Skin cancer Father Liver cancer Heart attack Daughter Asthma ADHD Son No problems noted. Son No problems noted. Social History Are you a primary career technical education instructor to a significant other at home: No Do you presently have visiting nurse or other home services: No Alcohol intake: current Alcohol intake frequency: holidays/special occasions only Patient Tobacco Use Status: Never used Tobacco Telehealth Telehealth Telehealth Platform: Telephone Location of provider rendering services: practice address Location of patient: address on file Patient Identification confirmed using: Name, : Yes Telehealth method: voice only Patient verbally consented to treatment: Yes Patient verbally consented to billing insurance company: Yes Patient informed of any privacy concerns related to visit: Yes Assessment & Plan Assessment & Plan (1) History of removal of laparoscopic gastric banding device: Code(s): Z98.84 - Bariatric surgery status Category: Medical (2) Morbid obesity: Code(s): E66.01 - Morbid (severe) obesity due to excess calories Category: Medical Plan Pt doing well from a surgical standpoint. Continues to follow meal plan per Dr. Cabrera, is losing weight but may lose at a better pace once she increases her exercise. No reflux off PPI. No activity restrictions. She will continue to check in with Dr. Cabrera, does not need another appt with me at this time, but will let us know if she decides to pursue additional bariatric surgery with us.
[2024-07-23 12:14] VITALS: BMI 45.0
--- OUTSIDE RECORDS SUMMARY | 2024-07-23 15:12 | XMS_ITS ---
Author Organization [facility] Address [address] [place] [address] Care Team Providers Care Human Resources Benefits Coordinator Name Role Phone Mary Alice Gutierrez Primary Care Provider [phone] Unavailable [phone] REASON FOR VISIT MIRAH- cannot contact Encounters Encounter Location Date Provider Diagnosis [facility] [address] [place] [address] 07/04/2024 Mary Alice Gutierrez Plan Of Treatment Next Appt Details Provider Name:Mary Alice Gutierrez, 03/24/2025 02:30:00 PM, [address] [place], [id number], Progress Notes * JulyDOB: [birth year] (38 yo F)Acc No.[id number]:07/04/2024 Patient:?July :1985???Age:38 Y???Sex:Female Address:[address] [place] [address], [phone] * true * Date:? Generated for Printi ng/Faxing/eTransmitting on:?07/23/2024 03:12 PM EDT
--- OUTSIDE RECORDS SUMMARY | 2024-07-23 15:12 | XMS_ITS | Clinical Summary ---
Author Organization [facility] Address [address] [facility] [address] [place] [address] Phone Care Team Providers Care Vending Technician Name Role Phone Unavailable Primary Care Provider Unavailabl e Social History Tobacco Use Types Packs/Day Years [...] It is not the complete legal health record.[facility]
--- OUTSIDE RECORDS SUMMARY | 2024-07-23 15:13 | XMS_ITS ---
Author Organization [facility] Address [address] [place] [address] Care Team Providers Care Servicenow Administrator Developer Name Role Phone Mary Alice Gutierrez Primary Care Provider [address] [place] Unavailable [phone] REASON FOR VISIT MIRAH d/c? Encounters Encounter Location Date Provider Diagnosis [facility] [address] [place] [address] 07/05/2024 Mary Alice Gutierrez Plan Of Treatment Next Appt Details Provider Name:Mary Alice Gutierrez, 03/24/2025 02:30:00 PM, [address] [place], [phone], Progress Notes * JulyDOB: [birth year] (38 yo F)Acc No.[id number]:07/05/2024 Patient:?July :1985???Age:38 Y???Sex:Female Address:[address] [place] [address] [place], [address] * true * Date:? Generated for Printi ng/Faxing/eTransmitting on:?07/23/2024 03:13 PM EDT
--- OUTSIDE RECORDS SUMMARY | 2024-07-23 15:13 | XMS_ITS ---
Author Organization [facility] Address [address] [place] [address] Care Team Providers Care Parking Station Attendant Name Role Phone Mary Alice Gutierrez Primary Care Provider Ny Little Unavailable [phone] REASON FOR VISIT f/u adhd, labs (IH), ADHD= 19, chicken stuffer: Dextroamp-Amphetamin 30 Mg Tab 05/26/24 90/60, *pt wants to r/s, needs to drive daughter for her 4pm appt IH Medications Medication SIG (Take, Route, Fr equency, Duration) Notes Start Date End Date Status DULoxetine HCl 30 MG 1 cap(s) orally onc e a day for 30 days Active Adderall 30 MG tabs orally 1qam and 1/2 qpm for 60 days For ADHD 05/24/2024 Active Encounters Encounter Location Date Provider Diagnosis [facility] [address] [place] [address] 06/20/2024 Mary Alice Gutierrez No Show or Late Cancel NS.LTCX Assessments Encounter Date Diagnosis (ICD Code) Assessment Notes Treatment Notes Treatment Clinical Notes Section Notes 06/20/2024 No Show or Late Cancel (ICD-10 - NS.LTCX) 06/20/2024 Other Plan Of Treatment Next Appt Details Provider Name:Mary Alice Gutierrez, 03/24/2025 02:30:00 PM, [address] [place], [address], Progress Notes * JulyDOB: [birth year] (38 yo F)Acc No.[id number]:06/20/2024 Progress Note Patient:MIRNAJuly Provider:?Mary Alice Gutierrez MD :1985???Age:38 Y???Sex:Female D ate:06/20/2024 Address:[address] [place] [address] [id number] Subjective: * Chief Complaints: * ???1. f/u adhd, labs (IH). 2 . ADHD= 19. 3. chicken stuffer: Dextroamp-Amphetamin 30 Mg Tab 05/26/24 90/60. 4. *pt wants to r/s, needs to drive daughter for her 4pm appt IH. * Medical History:? * Medications:?Taking DULoxeti ne HCl 30 MG Capsule Delayed Release Particles 1 cap(s) orally once a day , Taking Adderall 30 MG Tablet tabs orally 1qam and 1/2 qpm , Notes to Pharmacist: For ADHD Objective: * Vitals:? Assessment: * Assessment: 1.?No Show or Late Cancel - NS.LTCX (Primary)??? Plan: * Treatment: * Images: Billing Information: * Visit Code:? * Procedure Codes:? Care Plan Details* * Electronic signature of Sarah Gutierrez MD on 07/23/2024 at 03:12 PM EDT Sign off status: Pending * Provider:?Mary Alice Gutierrez MD Date:?06/20/19 Generated for Gila terry/[place]/eTransmitting on:?07/23/2024 03:12 PM EDT
== END 2024-07-23 12:54 | disposition home or self-care (01) ==
LOC: HO.HBS 12:32
PROVIDERS: PCP Family Medicine; Visit Provider Physician Assistant Surgical
DX: E66.01 Morbid (severe) obesity due to excess calories (principal); Z98.84 Bariatric surgery status
CPT/HCPCS: 99024

== ENCOUNTER → 2024-07-23 12:32 | Outpatient (BNVA) | payer MEDICARE, MEDICAID, SELFPAY | PROVIDERS: PCP Family Medicine; Visit Provider Physician Assistant Surgical | DX: E66.01 Morbid (severe) obesity due to excess calories (principal); Z98.84 Bariatric surgery status; Z68.42 Body mass index [BMI] 45.0-49.9, adult | CPT/HCPCS: 99212 ==